=== PATIENT | female | born 1945 | race Caucasian/White ===

== ENCOUNTER 2019-11-18 09:25 | Emergency (ER) | payer OTHER ==
[~2019-11-18] VITALS: Ht 160 cm; Wt 56.7 kg
[2019-11-18 10:00] LABS: Basophils # (auto) 0 10 ^3/uL (0-0.2); Basophils % (auto) 0.1 % (0.0-2.0); Eosinophils # (auto) 0 10 ^3/uL (0-0.8); Eosinophils % (auto) 0.1 % (0.0-7.0); Hematocrit 32.6 % (36.0-46.0); Hemoglobin 10.7 g/dL (12.2-16.2); Lymphocytes # (auto) 0.5 10 ^3/uL (0.4-5.4); Lymphocytes % (auto) 3.2 % (10.0-50.0); Mean Corpuscular Hgb Conc. 32.9 g/dL (32.0-36.0); Mean Corpuscular Volume 91.2 fL (80.0-100.0); Monocytes # (auto) 0.8 10 ^3/uL (0-1.3); Monocytes % (auto) 5.4 % (0.0-12.0); Neutrophils # (auto) 13.7 10 ^3/uL (1.6-8.6); Neutrophils % (auto) 91.2 % (37.0-80.0); Platelet Count (auto) 361 10^3/uL (140-450); Red Blood Cells 3.57 10^6/uL (4.0-5.20); Red Cell Distribution Width 14.2 % (11.8-14.3)
[2019-11-18] MEDS ORDERED: ALBUTEROL SULF 2.5 MG/0.5ML(0.5%) NEB SOLN NEB ONE (10:00)
[2019-11-18] MEDS ORDERED: methylPREDNISolone SOD SUCC 125 MG/2 ML VL IV ONE (10:00)
[2019-11-18] MEDS ORDERED: IPRATROPIUM BROM 0.5 MG/2.5ML INH SOL NEB ONE (10:00)
[2019-11-18 10:22] LABS: Albumin 2.8 g/dL (3.4-5.0); Potassium 3.7 mmol/L (3.5-5.1)
[2019-11-18 10:25] LABS: BUN/Creatinine Ratio 35.8; Bilirubin, Total 0.5 mg/dL (0.2-1.0); Total Protein 6.6 g/dL (6.4-8.2)
[2019-11-18] MEDS ORDERED: cefTRIAXone 1GM/50ML D5W 50 ML IV ONE (11:15)
[2019-11-18] MEDS ORDERED: HYDROmorphone HCL 2 MG/ML VL IV ONE (11:15)
[2019-11-18] MEDS ORDERED: ONDANSETRON HCL 4 MG/2 ML VIAL IV ONE (11:15)
[2019-11-18] MEDS ORDERED: DOXYCYCLINE 100MG/250ML 250 ML IV ONE (11:15)
[2019-11-18 15:28] VITALS: BP 152/92
== END 2019-11-18 11:20 | disposition short-term general hospital (02) ==
LOC: EDBD 09:25 → ER 09:25
DX: T14.8XXA Other injury of unspecified body region, initial encounter (principal); J18.9 Pneumonia, unspecified organism; E44.0 Moderate protein-calorie malnutrition; R73.9 Hyperglycemia, unspecified; I10 Essential (primary) hypertension; Z68.22 Body mass index [BMI] 22.0-22.9, adult; W01.0XXA Fall on same level from slipping, tripping and stumbling without subsequent striking against object, initial encounter; Y93.89 Activity, other specified; Y92.89 Other specified places as the place of occurrence of the external cause; Y99.8 Other external cause status
CPT/HCPCS: 36415; 71045; 72131; 74176; 80053; 83605; 85025; 87040; 87426; 94640; 96365; 96368; 96375; 99285; J0696; J1170; J2405; J2930; J3490; J7644; 93005

== ENCOUNTER 2022-01-06 20:19 | Emergency (ER) | payer OTHER ==
[~2022-01-06] VITALS: Ht 160 cm; Wt 50.0 kg
[2022-01-06 22:43] VITALS: BP 150/90
[2022-01-06] MEDS ORDERED: ACETAMINOPHEN 325 MG TAB PO ONE (23:15)
== END 2022-01-07 01:58 | disposition home or self-care (01) ==
LOC: EDBD 20:19 → ER 20:21
DX: S62.307A Unspecified fracture of fifth metacarpal bone, left hand, initial encounter for closed fracture (principal); I10 Essential (primary) hypertension; W18.09XA Striking against other object with subsequent fall, initial encounter; Y93.89 Activity, other specified; Y92.89 Other specified places as the place of occurrence of the external cause; Y99.8 Other external cause status
CPT/HCPCS: 29125; 73130